=== PATIENT | female | born 1970 | race African-American/Black ===

== ENCOUNTER 2017-11-19 13:34 | Emergency (ER) | payer MEDICAID, OTHER ==
[~2017-11-19] VITALS: Ht 162.6 cm; Wt 68.0 kg
[2017-11-19 16:00] VITALS: BP 118/78
== END 2017-11-19 16:49 | disposition home or self-care (01) ==
LOC: ER 13:34
DX: S90.32XA Contusion of left foot, initial encounter (principal); S90.31XA Contusion of right foot, initial encounter; M20.12 Hallux valgus (acquired), left foot; M20.11 Hallux valgus (acquired), right foot; F17.200 Nicotine dependence, unspecified, uncomplicated; W22.03XA Walked into furniture, initial encounter; Y93.89 Activity, other specified; Y92.89 Other specified places as the place of occurrence of the external cause; Y99.8 Other external cause status; Z98.890 Other specified postprocedural states
CPT/HCPCS: 73630; 81025; 99284

== ENCOUNTER 2023-08-09 11:32 | Emergency (ER) | payer MEDICAID ==
[~2023-08-09] VITALS: Ht 165.1 cm; Wt 64.0 kg
[2023-08-09 11:35] VITALS: BP 124/80; RESP 16; TEMP 98.7; O2SAT 100
[2023-08-09 11:37] VITALS: PULSE 71
[2023-08-09] MEDS ORDERED: BO1 TP (12:41)
[2023-08-09] MEDS: TETANUS, DIPHTHERIA, PERTUSSIS VAC/PF 0.5ML (>10YR OLD) IM ONE (13:00)
== END 2023-08-09 14:00 | disposition home or self-care (01) ==
LOC: ER 11:32
DX: S40.851A Superficial foreign body of right upper arm, initial encounter (principal); W45.8XXA Other foreign body or object entering through skin, initial encounter; Y93.89 Activity, other specified; Y92.89 Other specified places as the place of occurrence of the external cause; Y99.8 Other external cause status
CPT/HCPCS: 90715; 90471; 99283; Z7610 ×3